=== PATIENT | female | born 1970 | race Caucasian/White ===

== ENCOUNTER 2017-05-30 16:18 | Emergency (ER) | payer OTHER ==
[~2017-05-30] VITALS: Ht 165.1 cm; Wt 95.3 kg
[~2017-05-30 16:18] MED LIST: ABILIFY 10 MG10 MG PO; ABILIFY 5MG5 MG PO; AMITRIPTYLINE H50 M2 PO; BETHANECHOL CHL10 MG PO; CALCITRIOL0.5 MC1 PO; CLONAZEPAM1 MG PO; FLOMAX(MONOGRA0.4 MG PO; HYDROCORTI2.5 %/30 G TOP; IRON240 MG PO; IRON256 MG PO; KEFLEX500 M1 PO; LAMICTAL 25MG25 MG PO; LAMOTRIGINE200 M2 PO; LITHIUM CARBON300 M2; MELATONIN 3 MG-1 TAB PO; MELATONIN3 MG PO; MYCOPHENOLATE500 M1 PO; MYCOPHENOLATE500 MG PO; NEURONTIN100 MG PO; PERCOCET 5-3251 EACH PO; PROPRANOLOL HC120 M1 PO; PROPRANOLOL HY120 MG PO; SENSIPAR30 M1 PO; SENSIPAR30 MG PO; SERTRALINE HYDR50 MG PO; SUMATRIPTAN SU100 M1 PO; SUMATRIPTAN SU100 MG PO; TRAZODONE100 MG PO; TURMERIC500 M2 PO; URECHOLINE10 MG PO; XARELTO15 M1 PO; XARELTO15 MG PO; XARELTO20 M2 PO
[2017-05-30 16:25] VITALS: BP 128/82
--- NOTE | 2017-05-30 16:28 | ED ANIMAL BITE/WOUND CHECK ---
History of Present Illness General Chief Complaint: Suture Removal/Wound Recheck Stated Complaint: SUTURE REMOVAL Source: patient, old records Exam Limitations: no limitations Vital Signs & Intake/Output Vital Signs & Intake/Output Vital Signs Date Time Temp Pulse Resp B/P B/P Pulse O2 O2 Flow FiO2 Mean Ox Delivery Rate 05/30 1628 94 05/30 1625 98.0 86 18 128/82 94 Room Air Allergies Coded Allergies: Penicillins (RASH 05/26/17) lithium (TREMORS 05/26/17) Reconcile Medications Amitriptyline HCl 50 MG TABLET 1 TAB PO QPM BLADDER/MENTAL HEALTH (Reported) Calcitriol 0.5 MCG CAPSULE 1 CAP PO DAILY SUPPLEMENT (Reported) Cephalexin (Keflex) 500 MG CAPSULE 1 CAP PO BID nasal fracture lip laceration Cinacalcet HCl (Sensipar) 30 MG TABLET 1 TAB PO BID THYROID (Reported) Ferrous Gluconate (IRON) 256 MG (28 MG IRON) TABLET 1 TAB PO DAILY SUPPLEMENT (Reported) Lamotrigine 200 MG TABLET 1 TAB PO DAILY MENTAL HEALTH (Reported) Mycophenolate Mofetil 500 MG TABLET 1 TAB PO BID MS (Reported) Oxycodone HCl/Acetaminophen (Percocet 5-325 MG Tablet) 5 MG-325 MG TABLET 1 TAB PO BID PRN pain Propranolol HCl (Propranolol HCl ER) 120 MG CAP.SA.24H 1 CAP PO BID TREMORS/BP (Reported) Rivaroxaban (Xarelto) 15 MG TABLET 1 TAB PO BID BLOOD THINNER (Reported) Sumatriptan Succinate 100 MG TABLET 1 TAB PO AD PRN MIGRAINES (Reported) may repeat in 2 hours; do not exceed 200 mg in 24 hours Turmeric Root Extract (Turmeric) (Unknown Strength) CAPSULE (Unknown Dose) PO DAILY SUPPLEMENT (Reported) Triage Note: PT HERE FOR SUTURE REMOVAL FROM FACE. SUTURES PLACED ON THE OF THIS MONTH HERE IN THE ED. Triage Nurses Notes Reviewed? yes Onset: Abrupt Duration: day(s): (4), constant Timing: recent history Injury Environment: home Is Injury an Animal Bite? No Severity: mild No Modifying Factors: none Associated Symptoms: denies : No Patient currently breastfeeds: No HPI: 46-year-old female presents to ER for evaluation for wound check suture removal after being seen here 4 days ago requiring 5 sutures status post fall. She denies any redness warmth fever chills discharge she is otherwise without any complaints Past History Travel History Traveled to [place] past 21 day No Medical History Any Pertinent Medical History? see below for history Musculoskeletal: MS Psychiatric: bipolar disease Endocrine: DIABETIS INSIPIDUS Other Medical Hx: MS, PE.DVT History of MRSA: No History of VRE: No History of CDIFF: No Tetanus Vaccine: 05/26/17 Surgical History Surgical History: N Psychosocial History Who do you live with Other (see notes) Services at Home None What is your primary language Irish Tobacco Use: Never used ETOH Use: denies use Illicit Drug Use: denies illicit drug use Family History Family History, If Any: No Known Family History. Hx Contributory? No Review of Systems Review of Systems Constitutional: Reports: see HPI. Comments Review of systems: See HPI, All other systems negative. Constitutional, no chills no fever, HEENT: no sore throat no congestion Cardiovascular: No chest pain Skin: no rashes, no change in skin Respiratory: No dyspnea no cough no sputum GI: No nausea no vomiting Muscle skeletal: No joint pain, no back pain Neurologic: , no headache Heme/endocrine: No bruising Physical Exam Physical Exam General Appearance: well developed/nourished, no apparent distress, alert Comments: Well-developed well-nourished patient in no apparent distress. HEENT: Atraumatic, sutures [address] noted below the right nostril, there is no surrounding erythema or or ecchymosis there is dry scabs noted to the lip and nasal bridge extraocular motion intact Neck: Supple, FROM Back: FROM Respiratory: No respiratory distress. Patient speaking in full complete sentences. Extremities: full range of motion Neuro: awake, alert, and oriented to person, place and time. There were no obvious focal neurologic abnormalities. Skin: Warm & dry;No appreciable rash on exposed skin Psych: Mood affect normal, normal memory normal judgment. Progress Differential Diagnosis: abscess, cellulitis Plan of Care: Discussed with patient plan of care that I do not believe the sutures are ready to come out she will return in 3 days for wound check I discussed with her plan of care return precautions she feels comfortable with plan cleared for discharge Departure Departure Time of Disposition: 1645 Disposition: HOME OR SELF CARE Condition: Stable Clinical Impression Primary Impression: Visit for wound check Referrals: Autumn Roman MD (PCP/Family) Additional Instructions: return in 3 days for wound check, suture removal. Departure Forms: Customer Survey General Discharge Information
== END 2017-05-30 16:45 ==
LOC: ERH 16:18
DX: Z48.02 Encounter for removal of sutures (principal)

== ENCOUNTER 2017-06-02 17:23 | Emergency (ER) | payer OTHER ==
[~2017-06-02] VITALS: Ht 165.1 cm; Wt 97.5 kg
--- NOTE | 2017-06-02 17:29 | ED SKIN/ALLERGY COMPLAINT ---
History of Present Illness General Chief Complaint: Suture Removal/Wound Recheck Stated Complaint: WOUND CHECK Source: patient, old records Exam Limitations: no limitations Vital Signs & Intake/Output Vital Signs & Intake/Output Vital Signs Date Time Temp Pulse Resp B/P B/P Pulse O2 O2 Flow FiO2 Mean Ox Delivery Rate 06/02 1751 Room Air 06/02 1748 96.8 73 16 121/86 98 Room Air Allergies Coded Allergies: Penicillins (RASH 05/26/17) lithium (TREMORS 05/26/17) Reconcile Medications Amitriptyline HCl 50 MG TABLET 1 TAB PO QPM BLADDER/MENTAL HEALTH (Reported) Calcitriol 0.5 MCG CAPSULE 1 CAP PO DAILY SUPPLEMENT (Reported) Cephalexin (Keflex) 500 MG CAPSULE 1 CAP PO BID nasal fracture lip laceration Cinacalcet HCl (Sensipar) 30 MG TABLET 1 TAB PO BID THYROID (Reported) Ferrous Gluconate (IRON) 256 MG (28 MG IRON) TABLET 1 TAB PO DAILY SUPPLEMENT (Reported) Lamotrigine 200 MG TABLET 1 TAB PO DAILY MENTAL HEALTH (Reported) Mycophenolate Mofetil 500 MG TABLET 1 TAB PO BID MS (Reported) Oxycodone HCl/Acetaminophen (Percocet 5-325 MG Tablet) 5 MG-325 MG TABLET 1 TAB PO BID PRN pain Propranolol HCl (Propranolol HCl ER) 120 MG CAP.SA.24H 1 CAP PO BID TREMORS/BP (Reported) Rivaroxaban (Xarelto) 15 MG TABLET 1 TAB PO BID BLOOD THINNER (Reported) Sumatriptan Succinate 100 MG TABLET 1 TAB PO AD PRN MIGRAINES (Reported) may repeat in 2 hours; do not exceed 200 mg in 24 hours Turmeric Root Extract (Turmeric) (Unknown Strength) CAPSULE (Unknown Dose) PO DAILY SUPPLEMENT (Reported) Triage Nurses Notes Reviewed? yes Onset: Gradual Duration: week(s): Timing: recent history Severity: moderate Location: face HPI: 46-year-old female presents to emergency department for suture removal. Patient was seen and evaluated here 1 week ago for upper lip laceration after a fall. Patient had 5 stitches placed at that time. Patient came back 3 days ago however was told that the stitches were not ready to come out yet. Patient has been applying a Band-Aid however she has not been applying bacitracin or cleaning the area. She denies fevers, bleeding, swelling, bruising. (Vero Oh) Past History Travel History Traveled to [place] past 21 day No Medical History Any Pertinent Medical History? see below for history Musculoskeletal: MS Psychiatric: bipolar disease Endocrine: DIABETIS INSIPIDUS Other Medical Hx: MS, PE.DVT History of MRSA: No History of VRE: No History of CDIFF: No Tetanus Vaccine: 05/26/17 Surgical History Surgical History: N Psychosocial History Who do you live with Other (see notes) Services at Home None What is your primary language Dutch Family History Family History, If Any: No Known Family History. Hx Contributory? No (Vero Oh) Review of Systems Review of Systems Constitutional: Reports: no symptoms. EENTM: Reports: no symptoms. Respiratory: Reports: no symptoms. Cardiovascular: Reports: no symptoms. GI: Reports: no symptoms. Genitourinary: Reports: no symptoms. Musculoskeletal: Reports: no symptoms. Skin: Reports: see HPI. Neurological/Psychological: Reports: no symptoms. Hematologic/Endocrine: Reports: no symptoms. Immunologic/Allergic: Reports: no symptoms. All Other Systems: Reviewed and Negative (Vero Oh) Physical Exam Physical Exam General Appearance: well developed/nourished, no apparent distress, alert, awake Head: steri strips in place to nasal bridge 2x2cm scab above upper lip Eyes: Bilateral: normal appearance. Ears, Nose, Throat: healing wound to inner lower lip Neck: normal inspection, supple, full range of motion Respiratory: no respiratory distress Back: normal inspection, normal range of motion Extremities: normal inspection, normal range of motion Neurologic/Psych: awake, alert, oriented x 3 Skin: 2x2cm scab above upper lip (Vero Oh) Progress Differential Diagnosis: abscess/cellulitis, contact dermatitis, SUTURE REMOVAL, ABRASION, LACERATION Plan of Care: 5 STITCHES REMOVED. LARGE SCAB WAS REMOVED TO VISUALIZE STITCHES. PATIENT TOLERATED PROCEDURE WELL. PT INSTRUCTED TO APPLY BACITRACIN DAILY. STERI STRIPS TO NASAL BRIDE HAVE BEEN PRESENT X 1 WEEK. PATIENT INSTRUCTED TO APPLY WARM COMPRESS AND REMOVE STRIPS TODAY. PATIENT ALSO EDUCATED ON CLEANING WOUND DAILY. (Vero Oh) Departure Departure Disposition: HOME OR SELF CARE Condition: Stable Clinical Impression Primary Impression: Visit for suture removal Referrals: Autumn Roman MD (PCP/Family) Additional Instructions: Keep skin clean and dry. Continue to monitor for symptoms of infection such as redness, swelling, increasing pain. Return with any worsening symptoms or concerns. Apply warm compress to strips so they fall off. Please go over all results of today's visit with your primary care doctor. Contact your primary care doctor to let them know you were here in the emergency room. There may be nonspecific findings which may not be related to your visit today here in the emergency room but may require further evaluation and chronic monitoring by your primary care doctor. If you had a laceration today the chance of foreign body always remains. You should follow-up with your primary care doctor for recheck in 3-5 days for a wound check. If you had an x-ray done there is a chance that a fracture could have been missed on initial read and you should follow-up with your primary care doctor for repeat x-rays if symptoms persist. If your blood pressure was elevated here in the emergency room please have rechecked by [facility] primary care doctor within the next 48. If you were prescribed a narcotic here in the emergency room or any type of controlled substances you're not allowed to drive while taking this medication or operate any type of heavy machinery. Narcotics can make you feel lightheaded dizziness nausea and can cause constipation. You may need to leaf size picker a stool softener. Thank you for choosing [facility] emergency room. Please return to the emergency room immediately if you have any other concerns worsening of symptoms. Departure Forms: Customer Survey General Discharge Information (Farrah THEODORE,Vero Quintero) PA/FIBER TECHNICIAN Co-Sign Statement Statement: ED Attending supervision documentation- [] I saw and evaluated the patient. I have also reviewed all the pertinent lab results and diagnostic results. I agree with the findings and the plan of care as documented in the PA's/FIBER TECHNICIAN's documentation. [X] I have reviewed the ED Record and agree with the PA's/FIBER TECHNICIAN's documentation. [] Additions or exceptions (if any) to the PAs/FIBER TECHNICIAN's note and plan are summarized below: [] (Bruce ADHIKARI,Esa Rhoades)
[2017-06-02 17:48] VITALS: BP 121/86
== END 2017-06-02 18:21 ==
LOC: ERH 17:23
DX: Z48.02 Encounter for removal of sutures (principal)

== ENCOUNTER 2017-09-21 12:54 | Inpatient (IN) | payer OTHER ==
[~2017-09-21] VITALS: Ht 167.6 cm; Wt 96.7 kg
[~2017-09-21 12:54] MED LIST changes: -PROPRANOLOL HC120 M1 PO; +PROPRANOLOL HCL80 M2 PO; -XARELTO15 M1 PO
[2017-09-21] MEDS ORDERED: ACETAZOLAMIDE125 M1 PO (14:24)
[2017-09-21] MEDS ORDERED: HYDROCHLOROTH12.5 M2 PO (14:25)
[2017-09-21] MEDS ORDERED: MIRTAZAPINE15 M2 PO (14:26)
--- NOTE | 2017-09-21 15:34 | ED UPPER/LOWER EXTREMITY COMPL ---
History of Present Illness General Chief Complaint: Lower Extremity Problems Stated Complaint: SIB NEURO, ?CELLULITIS IN L LEG Vital Signs & Intake/Output Vital Signs & Intake/Output Vital Signs Date Time Temp Pulse Resp B/P B/P Pulse O2 O2 Flow FiO2 Mean Ox Delivery Rate 09/21 1736 74 20 144/88 100 Room Air 09/21 1309 97.0 85 20 95/68 94 Room Air Allergies Coded Allergies: Penicillins (RASH 05/26/17) lithium (TREMORS 05/26/17) Reconcile Medications Acetazolamide 125 MG TABLET 1 TAB PO BID UNKNOWN (Reported) Amitriptyline HCl 50 MG TABLET 1 TAB PO QPM BLADDER/MENTAL HEALTH (Reported) Calcitriol 0.5 MCG CAPSULE 1 CAP PO DAILY SUPPLEMENT (Reported) Cinacalcet HCl (Sensipar) 30 MG TABLET 1 TAB PO BID THYROID (Reported) Ferrous Gluconate (IRON) 256 MG (28 MG IRON) TABLET 1 TAB PO MoWeFr SUPPLEMENT (Reported) Hydrochlorothiazide 12.5 MG TABLET 1 TAB PO DAILY WATER RETENTION (Reported) Lamotrigine 200 MG TABLET 1 TAB PO DAILY MENTAL HEALTH (Reported) Mirtazapine 15 MG TABLET 1 TAB PO QPM SLEEP (Reported) Mycophenolate Mofetil 500 MG TABLET 1 TAB PO BID MS (Reported) Propranolol HCl (Propranolol HCl ER) 80 MG CAP.SA.24H 1 CAP PO DAILY TREMORS (Reported) Rivaroxaban (Xarelto) 20 MG TABLET 1 TAB PO DAILY BLOOD THINNER (Reported) with food Triage Note: PT TO ED FOR LLE PAIN, SWELLING AND REDNESS X A FEW DAYS. WORSE THE LAST COUPLE DAYS. AFEBRILE. PAIN IS WORSE WITH WEIGHT BEARING. Past History Travel History Traveled to [place] past 21 day No Medical History Neurological: multiple sclerosis Musculoskeletal: MS Psychiatric: bipolar disease Endocrine: DIABETES INSIPIDUS Other Medical Hx: MS, PE.DVT History of MRSA: No History of VRE: No History of CDIFF: No Tetanus Vaccine: 05/26/17 Surgical History Surgical History: N Psychosocial History Who do you live with Other (see notes) Services at Home None What is your primary language Malay Tobacco Use: Never used ETOH Use: denies use Illicit Drug Use: denies illicit drug use Family History Family History, If Any: No Known Family History. Progress Plan of Care: Orders Procedure Date/time Status URINALYSIS 09/21 1741 Active LACTIC ACID 09/21 1657 Active EKG 09/21 1653 Active BLOOD CULTURE 09/21 1357 Active LACTIC ACID 09/21 1357 Active HEPATITIS PANEL 09/21 1357 Active COMPREHENSIVE METABOLIC PANEL 09/21 1357 Active CBC WITHOUT DIFFERENTIAL 09/21 1357 Complete Current Medications Sig/Sheree Start time Last Medication Dose Stop Time Status Admin Potassium Chloride 20 MEQ ONCE ONE 09/21 1700 CAN 09/21 1701 Laboratory Tests 09/21/17 181: Lactic Acid Pending 09/21/17 1550: Anion Gap 22 H, Estimated GFR 25 L, BUN/Creatinine Ratio 16.2, Glucose 93, Lactic Acid 2.3 H, Calcium 9.3, Total Bilirubin 1.0, AST 39 H, ALT 29, Alkaline Phosphatase 164 H, Total Protein 9.5 H, Albumin 5.0, Globulin 4.5 H, Albumin/Globulin Ratio 1.1, CBC w Diff NO MAN DIFF REQ, RBC 4.62, MCV 94.2, MCH 31.4 H, MCHC 33.4, RDW 14.3, MPV 7.6, Gran % 73.1, Lymphocytes % 13.5 L, Monocytes % 12.0 H, Eosinophils % 1.0, Basophils % 0.4, Absolute Granulocytes 9.4 H, Absolute Lymphocytes 1.7, Absolute Monocytes 1.6 H, Absolute Eosinophils 0.1, Absolute Basophils 0, Hepatitis A IgM Ab Pending, Hep Bs Antigen Pending, Hep B Core IgM Ab Conf Pending, Hepatitis C Antibody Pending Microbiology 09/21 1818 BLOOD: Blood Culture - CAN Cancelled: Quantity not sufficient for both blood culture bottles. 09/21 1550 BLOOD: Blood Culture - RECD Diagnostic Imaging: Viewed by Me: Ultrasound. Discussed w/RAD: Ultrasound. Initial ED EKG: SINUS RHYTHM @73BPM, NONSPECIFIC ST CHANGES Prior EKG: changed (01/17/14) Departure Departure Disposition: STILL A PATIENT Condition: Stable Clinical Impression Primary Impression: Acute kidney injury Secondary Impressions: Cellulitis Qualifiers: Site of cellulitis: extremity Site of cellulitis of extremity: lower extremity Laterality: right Qualified Code: L03.115 - Cellulitis of right lower limb Hypokalemia Referrals: Autumn Roman MD (PCP/Family) Departure Forms: Customer Survey General Discharge Information Admission Note Spoke With: Juan A Klein MD Documentation of Exam: Documentation of any treatments & extenuating circumstances including Concerns Regarding Discharge (functional status, medication knowledge or non-compliance, living conditions, etc.) that warrant an admission rather than observation: [ acute kidney injury with hypokalemia and EKG changes requiring potassium replacement, repeat labs, telemetry monitoring, cellulitis requiring IV antibiotics, premature discharge medically unsafe]
[2017-09-21 16:20] LABS: ABSOLUTE BASOPHIL COUNT 0 /CUMM (0.0-0.2); ABSOLUTE EOSINOPHIL COUNT 0.1 /CUMM (0.0-0.7); ABSOLUTE GRANULOCYTE CT 9.4 /CUMM (1.4-6.5); ABSOLUTE LYMPH COUNT 1.7 /CUMM (1.2-3.4); ABSOLUTE MONOCYTE COUNT 1.6 /CUMM (0.10-0.60); BASOPHIL % 0.4 % (0.0-2.0); GRANULOCYTE % 73.1 % (42.2-75.2); HEMATOCRIT 43.5 % (37-47); MEAN CORPUSCULAR HGB 31.4 PG (27.0-31.0); MEAN CORPUSCULAR HGB CONC 33.4 G/DL (33.0-37.0); MEAN CORPUSCULAR VOLUME 94.2 FL (81.0-99.0); MEAN PLATELET VOLUME 7.6 FL (7.4-10.4); PLATELET COUNT 396 /CUMM (130-400); RBC DISTRIBUTION WIDTH 14.3 % (11.5-14.5); RED BLOOD CELL CT 4.62 /CUMM (4.20-5.40); WHITE BLOOD CELL COUNT 12.9 /CUMM (4.8-10.8)
--- NOTE | 2017-09-21 16:58 | ULTRASOUND REPORT ---
EXAMINATION: US TRIPLEX LOWER EXTREMITY, LEFT CLINICAL INFORMATION: Left lower extremity swelling. COMPARISON: None TECHNIQUE: Color-flow triplex imaging with spectral analysis and compression Doppler were performed on the lower extremity. FINDINGS: Respiratory variation, normal compression and augmented flow are noted throughout the lower extremity. The visualized common femoral vein, superficial femoral vein, profunda femoral vein, popliteal vein and midcalf peroneal and posterior tibial venous segments show no evidence of deep venous thrombosis. There is no Willams's cyst. IMPRESSION: No evidence of deep venous thrombosis involving the lower extremity.
--- NOTE | 2017-09-21 21:10 | History & Physical ---
Dwain Dumont 09/21/172108: General Information and HPI MD Statement: I have seen and personally examined LILIANA MCCRACKEN and documented this H&P. The patient is a 47 year old F who presented with a patient stated chief complaint of [left lower extremity swelling]. Source of Information: patient Exam Limitations: no limitations History of Present Illness: The patient is a 47 years old lady with past medical history of MS and HTN who was reffered to ER by her neurologist due to left lower extremity cellulitis. She was relatively fine till 5 days ago when her symptoms started as redness and swelling in her left ankle. These symptoms has been worsening gradually. She had no fever recently. No visible wound or discharge from her left lower extermity. She reports no chills, sweating, chest pain, SOB, or fever. She has an overactive bladder but no signs or symptoms of UTI. She has history of frequent falling, she has been using a walker lately which has helped her with the falls. PMHx:She had one episode of PTE in 2013, and history of MS (was on mycophenolate till 1.5 months ago). GERD, Bipolar dx (was on Li previously that caused DI). FHx: Not significant Social Hx: No smoking or alcohol or drugs Imaging: Doppler sono of LE: No evidence of deep venous thrombosis involving the lower extremity Labs: K: 2.7 ---> 2.3 Cr: 2.1 --> 1.5 Lactic acid: 2.3 ---> 3.1 ---> 3.2 Allergies/Medications Allergies: Coded Allergies: Penicillins (RASH 05/26/17) lithium (TREMORS 05/26/17) Home Med list Acetazolamide 125 MG TABLET 1 TAB PO BID UNKNOWN (Reported) Amitriptyline HCl 50 MG TABLET 1 TAB PO QPM BLADDER/MENTAL HEALTH (Reported) Calcitriol 0.5 MCG CAPSULE 1 CAP PO DAILY SUPPLEMENT (Reported) Cinacalcet HCl (Sensipar) 30 MG TABLET 1 TAB PO BID THYROID (Reported) Ferrous Gluconate (IRON) 256 MG (28 MG IRON) TABLET 1 TAB PO MoWeFr SUPPLEMENT (Reported) Hydrochlorothiazide 12.5 MG TABLET 1 TAB PO DAILY WATER RETENTION (Reported) Lamotrigine 200 MG TABLET 1 TAB PO DAILY MENTAL HEALTH (Reported) Mirtazapine 15 MG TABLET 1 TAB PO QPM SLEEP (Reported) Propranolol HCl (Propranolol HCl ER) 80 MG CAP.SA.24H 1 CAP PO DAILY TREMORS (Reported) Rivaroxaban (Xarelto) 20 MG TABLET 1 TAB PO DAILY BLOOD THINNER (Reported) with food Compliance With Home Meds: GOOD Past History Travel History Traveled to [place] past 21 day No Medical History Neurological: multiple sclerosis Musculoskeletal: MS Psychiatric: bipolar disease Endocrine: DIABETES INSIPIDUS Other Medical Hx: MS, PE.DVT History of MRSA: No History of VRE: No History of CDIFF: No Tetanus Vaccine: 05/26/17 Surgical History Surgical History: N Past Family/Social History Family History Relations & Conditions if any No Known Family History. Psychosocial History Services at Home: None ETOH Use: denies use Illicit Drug Use: denies illicit drug use Review of Systems Review of Systems Constitutional: Reports: no symptoms, see HPI. EENTM: Reports: no symptoms, see HPI. Cardiovascular: Reports: see HPI. Respiratory: Reports: see HPI. GI: Reports: see HPI. Genitourinary: Reports: see HPI. Musculoskeletal: Reports: see HPI. Skin: Reports: see HPI. Neurological/Psychological: Reports: see HPI. Hematologic/Endocrine: Reports: see HPI. Immunologic/Allergic: Reports: see HPI. Exam & Diagnostic Data Last 24 Hrs of Vital Signs/I&O Vital Signs Date Time Temp Pulse Resp B/P B/P Pulse O2 O2 Flow FiO2 Mean Ox Delivery Rate 09/21 2154 98.4 80 20 118/72 98 Room Air 09/21 2037 97.6 82 16 138/82 97 Room Air 09/21 1736 74 20 144/88 100 Room Air 09/21 1309 97.0 85 20 95/68 94 Room Air Intake & Output 09/22 0800 09/22 0000 09/21 1600 Intake Total 0 Output Total Balance 0 Intake, Oral 0 Patient 211 lb 204 lb Weight Weight Bed scale Estimated Measurement Method Physical Exam General Appearance Alert, Oriented X3, Cooperative, No Acute Distress Skin No Rashes Skin Temp/Moisture Exam: Warm/Dry Sepsis Skin Exam (color): Normal for Ethnicity HEENT Atraumatic, PERRLA, EOMI, Mucous Membr. moist/pink Neck Supple, No JVD Cardiovascular Regular Rate, Normal S1, Normal S2 Lungs Clear to Auscultation, Normal Air Movement Abdomen Normal Bowel Sounds, Soft, No Tenderness Neurological Normal Speech, Strength at 5/5 X4 Ext, Normal Tone, Sensation Intact, Cranial Nerves 3-12 NL Extremities Distal left lower extermity erythema and tenderness with no drainage or wound Vascular Normal Pulses, Pulses Symmetrical Sepsis Peripheral Pulse Location: Dorsalis Pedis Sepsis Peripheral Pulse Exam: Normal Sepsis Cap Refill Exam: >2 sec Diagnostic Data EKG Results ST dep in V4-6, I, II Other Results LE doppler sono: NO DVT Assessment/Plan Assessment: Ms. Mccracken is a 47 yo lady with past medical hx of HTN, MS, bipolar disorder, and previous PTE who is sent here by her neurologist due to erythema, swelling and tenderness in her right lower extremity. She has not been febrile and she has no drainage or wound at the site of erythema, she has tenderness and mild to moderate pain. She also has pitting edema in the same side. A lower extremity doppler sono was done which showed no signs of DVT. She is on Rivaroxaban. Her P/E and Hx and lab results (high LA) are consistent with cellulitis. So it might be prudent to start empiric antibiotic therapy that covers beta-hemolytic streptococci and methicillin- susceptible Staphylococcus aureus, which means cefazolin would be a good choice in her case. since she has an impaired renal function we should give her adjusted dose. We should also send cultures for blood and urine. We should monitor the lactic acid and creatinine level. She also has elevated creatinine level that is coming down with hydration. She also has hypokalemia for which IV KCl has been ordered. Problem List -Cellulitis in right lower extremity -Hypokalemia (2.7 ---> 2.3) -JESSICA (2.1 ---> 1.5) -ST dep V4-V6, I, AvL -MS, not on immunosuppresives -Bipolar disorder -HTN -Hx of PE -Hx of DI As Ranked By This Provider Problem List: 1. Cellulitis Qualifiers Site of cellulitis: extremity Site of cellulitis of extremity: lower extremity Laterality: right Qualified Code: L03.115 - Cellulitis of right lower limb 2. Acute kidney injury 3. Hypokalemia 4. Overactive bladder 5. Multiple sclerosis 6. Bipolar disorder Core Measures/Misc (11/21) Acute Coronary Syndrome ACS Diagnosis: No Congestive Heart Failure Congestive Heart Failure Diagnosis No Cerebrovascular Accident CVA/TIA Diagnosis: No VTE (View Protocol) VTE Risk Factors Obesity No Mechanical VTE Prophylaxis d/t N/A MechProphylax Ordered No VTE Pharm Prophylaxis d/t NA PharmProphylax ordered Sepsis (View protocol) Sepsis Present: Yes If YES complete Sepsis Event Note If YES complete Sepsis Event Note Paty ADHIKARIWally 09/21/17 2132: Core Measures/Misc (11/21) Sepsis (View protocol) If YES complete Sepsis Event Note If YES complete Sepsis Event Note Resident Review Statement Resident Statement: examined this patient, discussed with sourcing intern, agreed with sourcing intern, reviewed EMR data (avail) Other Findings: History of present illness 47-year-old woman with past medical history of bipolar disorder, hypertension, multiple sclerosis, overactive bladder, migraines, history of diabetes insipidus , severe hyponatremia, primary hyperparathyroidism, and pulmonary embolism on Xarelto sent in by her neurologist for lower extremity swelling and redness. Patient reports that over the past 5 days she has had moderately worsening left lower extremity swelling with tenderness. She denies any trauma to the area and feels it is getting worse. She denies any fever or chills. Otherwise patient feels well and has no complaints. Review of systems Additionally she denies any headache, vision changes, lightheadedness, dizziness , chest pain, palpitations, shortness breath, cough, nausea, vomiting, diarrhea, constipation, urinary complaints. Objective Vital signs-temp 97.0, HR 74-85, RR 20, BP 95-1 4 4/66-88, O2 94-100% on room air Physical exam -General: Well-developed, obese middle-aged woman in no acute distress -HEENT: NCAT, Dustin, EOMI, anicteric sclera -Neck: Supple, no JVD, trachea midline, no accessory respiratory muscle use -Cardio: Normal S1/S2 without murmurs/scalp/rubs; regular rate and rhythm -Pulmonary: Diminished bibasilar airflow -Abdomen: Soft, nontender, nondistended, bowel sounds intact -Neuro: Awake and alert, cranial nerves II through XII grossly intact -Extremities: Mild distal left lower extremity erythema and tenderness without obvious drainage Labs/imaging/studies -CBC: WBC 12.9, hemoglobin 14.5, hematocrit 43.5, platelet 396 -BMP: Sodium 136, potassium 2.7, chloride 85, CO2 29, BUN 34, creatinine 2.1 -LFT: AST 39, ALT 29, ALP 164 -Miscellaneous: Lactic acid 2.3/3.1, -LLE venous Doppler: * No evidence of deep venous thrombosis involving the lower extremity. -echocardiogram (01/14/14): * Mild concentric LVH * LVEF >65% * No regional wall motion abnormality -EKG 01/17/14: Sinus tachycardia -EKG 09/21/17 1715: ST segment depression in V4-V6, I, aVL, nonspecific interventricular conduction delay Assessment 47-year-old woman with multiple medical problems significant for bipolar disorder, pulmonary embolism on Xarelto, multiple sclerosis, and primary hyperparathyroidism seen for evaluation of lower extremity redness, tenderness, and swelling. Presently patient admits to only moderate pain in the left lower extremity and has no other complaints. Vital signs remain within normal limits. Physical examination demonstrates a mildly erythematous/tender left lower extremity without drainage. Lab studies are significant for WBC 12.9, K2.7, creatinine 2.1, lactic acid 2.3/3.1. Lower extremity ultrasound is negative for DVT. EKG does demonstrate lateral ST segment depression. Clinically patient appears to have sepsis secondary to a left lower extremity cellulitis with hypokalemia and acute kidney injury. Patient is to be admitted to the telemetry floor for telemetry monitoring, serial troponin/EKG, intravenous fluids, potassium repletion, antibiotics, echocardiogram, serial serum chemistries, and cardiology evaluation. Problem List -Right lower extremity cellulitis -Elevated Lactic acid -Hypokalemia -Acute kidney injury -ST depression V4-V6, I, AvL -Bipolar disorder -Multiple sclerosis, not on immunosuppresives -Hypertension -Overactive bladder -History of Migraines -Primary hyperparathyroidism -History of PE, on Xarelto -History of Diabetes Insipidus -Obesity Plan -Admit to telemetry floor -Telemetry monitoring -Elevate leg -Normal Saline + 40 mEq KCl @ 100 mL/hr -Cefazolin 1g IV Q8H -Continue home meds: Acetazolamide, amitriptyline, calcitriol, cinacalcet, iron supplement, hydrochlorothiazide, lamotrigine, mirtazapine, propranolol, and Xarelto -Cardiology consult for EKG changes -Follow up cultures & sensitivies -Transthoracic echocardiogram to assess for regional wall motion abnormality -Serial troponin / EKG until peak, or three negative sets -Monitor BMP -Trend lactic acid until normal -Pain control with acetaminophen -Heart Healthy Diet -DVT PPx with ALPS & Xarelto -FULL CODE Ernie ADHIKARIJuan A 09/21/17 2156: Core Measures/Misc (11/21) Sepsis (View protocol) If YES complete Sepsis Event Note If YES complete Sepsis Event Note Attending MD Review Statement Attending Statement Attending MD Statement: examined this patient, discuss w/resident/PA/SOLDER TECHNICIAN, agreed w/resident/PA/SOLDER TECHNICIAN, reviewed EMR data (avail) Attending Assessment/Plan: 47F PMH bipolar disorder, hypertension, multiple sclerosis sent in from her neurologist's office for LLE cellulitis. She has had left ankle swelling, erythema, and warmth for 2-3 days and it has been worsening. She denies fever, chills, headache, sore throat, chest pain, SOB, abdominal pain, diarrhea, dysuria, or any neurological deficit or change. Afebrile, normal BP and HR, WBC 12.9, lactate 2.3, creatinine 2.1. Leg is warm and red on exam, tender to palpation. EKG shows NSR with non-specific T-wave changes in precordial leads, differing from 2014 EKG. LE doppler negative for VTE. Of note, patient uses a mouth guard when she sleeps as she has broken teeth while grinding her teeth in her sleep before. 1. Sepsis secondary to left lower leg cellulitis 2. JESSICA 3. Lactic acidosis 4. Acute EKG changes 5. Multiple sclerosis Plan - Admit to telemetry - Start Cefazolin - Blood cultures - Trend EKG and troponin - Echocardiogram - Aggressive hydration - Trend lactate to normal - Trend renal function - Leg elevation - Mouth guard from home - Continue home medications - DVT PPx
[2017-09-21 21:54] VITALS: BP 118/72
--- NOTE | 2017-09-21 22:00 | Admission Certification ---
Admission Certification Certification Statement - As attending physician, I certify that at the time of - admission, based on clinical presentation, severity of - symptoms, need for further diagnostic testing and - therapeutic interventions, and risk of adverse outcomes - without in-hospital treatment, in my clinical assessment, - this patient requires an acute hospital stay for a minimum - of two nights or longer. I have also considered psychsocial - factors such as support system, advanced age, financial - issues, cognitive issues, and failed out-patient treatments, - past re-admission history, safety of patient, and lack of - compliance as applicable. Specific rationale supporting this admission is: Sepsis and cellulitis
[2017-09-22 05:17] LABS: ABSOLUTE BASOPHIL COUNT 0 /CUMM (0.0-0.2); ABSOLUTE EOSINOPHIL COUNT 0.1 /CUMM (0.0-0.7); ABSOLUTE GRANULOCYTE CT 5.7 /CUMM (1.4-6.5); ABSOLUTE LYMPH COUNT 1.4 /CUMM (1.2-3.4); ABSOLUTE MONOCYTE COUNT 0.9 /CUMM (0.10-0.60); BASOPHIL % 0.2 % (0.0-2.0); EOSINOPHIL % 1.8 % (0-5); GRANULOCYTE % 69.4 % (42.2-75.2); HEMATOCRIT 42.3 % (37-47); MEAN CORPUSCULAR HGB 31.3 PG (27.0-31.0); MEAN CORPUSCULAR HGB CONC 33.2 G/DL (33.0-37.0); MEAN CORPUSCULAR VOLUME 94.5 FL (81.0-99.0); MEAN PLATELET VOLUME 7.8 FL (7.4-10.4); PLATELET COUNT 400 /CUMM (130-400); RBC DISTRIBUTION WIDTH 14.7 % (11.5-14.5); RED BLOOD CELL CT 4.48 /CUMM (4.20-5.40); WHITE BLOOD CELL COUNT 8.2 /CUMM (4.8-10.8)
[2017-09-22 06:55] VITALS: BP 116/80
--- NOTE | 2017-09-22 07:28 | PN- Housestaff ---
Antonio Sullivan 09/22/17 0727: Subjective Follow-up For: Left lower extremity cellulitis Hypokalemia Acute kidney injury Lactic acidosis resolved Complaints: no complaints Tele-Events Since Last Visit: Normal sinus rhythm Subjective: Patient was seen and examined this morning. She is alert awake and oriented to time place and person. No acute events noticed overnight. Patient reports left lower extremity swelling, redness, less tender since admission. She is tolerating IV antibiotics. Patient potassium was low, getting IV and oral potassium supplementation. She denies any muscle weakness, chest pain, palpitations, short of breath, fevers, chills. Vitals were within normal limits. Afebrile, heart rate 85, respiratory rate 20, blood pressure 144/88, saturating at 100 on room air. Review of Systems Constitutional: Reports: see HPI. Objective Last 24 Hrs of Vital Signs/I&O Vital Signs Date Time Temp Pulse Resp B/P B/P Pulse O2 O2 Flow FiO2 Mean Ox Delivery Rate 09/22 1416 97.1 81 18 104/62 96 Room Air 09/22 0802 120/62 09/22 0655 97.8 82 18 116/80 97 Room Air 09/21 2154 98.4 80 20 118/72 98 Room Air 09/21 2037 97.6 82 16 138/82 97 Room Air 09/21 1736 74 20 144/88 100 Room Air Intake & Output 09/22 1600 09/22 0800 09/22 0000 Intake Total 1000 Output Total 1500 300 Balance -500 -300 Intake, IV 600 Intake, Oral 400 Number 1 Bowel Movements Output, Urine 1500 300 Patient 95.481 kg Weight Weight Bed scale Measurement Method Physical Exam General Appearance: Alert, Oriented X3, Cooperative, No Acute Distress Other Physical Findings: HEENT Atraumatic, PERRLA, EOMI, Mucous Membr. moist/pink Neck Supple, No JVD Cardiovascular Regular Rate, Normal S1, Normal S2 Lungs Clear to Auscultation, Normal Air Movement Abdomen Normal Bowel Sounds, Soft, No Tenderness Neurological Normal Speech, Strength at 5/5 X4 Ext, Normal Tone, Sensation Intact, Cranial Nerves 3-12 NL Extremities Distal left lower extermity erythema and tenderness with no drainage or wound Vascular Normal Pulses, Pulses Symmetrical Current Medications: Current Medications Sig/Sheree Start time Last Medication Dose Route Stop Time Status Admin Acetaminophen 125 MG BID 07/18 2144 DC PO Acetaminophen 650 MG Q6P PRN 09/21 2130 AC PO Acetazolamide 125 MG BID 09/21 2330 AC 09/22 PO 0806 Amitriptyline HCl 50 MG QPM 09/22 2100 AC PO Calcitriol 0.5 MCG DAILY 09/22 0900 AC 09/22 PO 0802 Cefazolin Sodium 1,000 MG IQ8 09/22 0000 AC 09/22 IV 1543 Cefazolin Sodium 0 .STK-MED ONE 09/21 1948 DC .ROUTE Cefazolin Sodium 1,000 MG ONCE ONE 09/21 1930 DC 09/21 IV 09/21 1931 2000 Cinacalcet 30 MG BID 09/21 2145 AC 09/22 PO 0802 Ciprofloxacin 400 MG ONCE ONE 09/21 1745 CAN Dextrose/Water 200 ML IV 09/21 1844 Ferrous Sulfate 325 MG 09/23 0900 AC PO Hydrochlorothiazide 12.5 MG DAILY 09/22 0900 DC 09/22 PO 0801 Lamotrigine 200 MG DAILY 09/22 0900 AC 09/22 PO 0802 Mirtazapine 15 MG QPM 09/22 2100 AC PO Potassium Chloride 60 MEQ ONCE ONE 09/22 0845 DC 09/22 PO 09/22 0846 0857 Potassium Chloride 40 MEQ .STK-MED ONE 09/22 0005 DC PO 09/22 0006 Potassium Chloride 40 MEQ Q10H 09/21 2359 DC 09/22 Sodium Chloride 1,000 ML IV 0122 Potassium Chloride 40 MEQ ONCE ONE 09/21 2345 DC 09/22 PO 09/21 2346 0006 Potassium Chloride 10 MEQ ONCE ONE 09/21 1730 DC 09/21 IV 09/21 1731 1731 Potassium Chloride 0 .STK-MED ONE 09/21 1712 DC PO Potassium Chloride 40 MEQ ONCE ONE 09/21 1700 DC 09/21 PO 09/21 1701 1730 Potassium Chloride 20 MEQ ONCE ONE 09/21 1700 CAN IV 09/21 1701 Propranolol HCl 80 MG DAILY 09/22 0900 AC 09/22 PO 0802 Rivaroxaban 20 MG DAILY 09/22 0900 AC 09/22 PO 0802 Sodium Chloride 1,000 ML BOLUS ONE 09/21 2145 DC 09/21 IV 09/21 2244 2203 Sodium Chloride 1,000 ML Q10H 09/21 2145 DC IV Sodium Chloride 1,000 ML BOLUS ONE 09/21 1700 DC 09/21 IV 09/21 1759 1730 Vancomycin HCl 1,000 MG ONCE ONE 09/21 1930 DC 09/21 Sodium Chloride 250 ML IV 09/21 2028 193 Vancomycin HCl 0 .STK-MED ONE 09/21 1923 DC .ROUTE Vancomycin HCl 1,000 MG ONCE ONE 09/21 1745 CAN Sodium Chloride 250 ML IV 09/21 1844 Last 24 Hrs of Lab/Familia Results Last 24 Hrs of Labs/Mics: Laboratory Tests 09/22/17 1540: Sodium Pending, Potassium Pending, Chloride Pending, Carbon Dioxide Pending, Anion Gap Pending, BUN Pending, Creatinine Pending, BUN/Creatinine Ratio Pending 09/22/17 0720: Urine Color YEL, Urine Clarity HAZY H, Urine pH 7.0, Ur Specific [place] <= 1.005, Urine Protein NEG, Urine Ketones NEG, Urine Nitrite NEG, Urine Bilirubin NEG, Urine Urobilinogen 0.2, Ur Leukocyte Esterase LARGE H, Ur Microscopic SEDIMENT EXAMINED, Urine RBC RARE, Urine WBC 5-10 H, Ur Epithelial Cells FEW, Urine Bacteria FEW H, Urine Hemoglobin NEG, Urine Glucose NEG 09/22/17 0645: Anion Gap 15, Estimated GFR 35 L, BUN/Creatinine Ratio 16.9, Lactic Acid < 0.5 L, Magnesium 2.1 09/22/17 0500: Lactic Acid 0.9, CBC w Diff NO MAN DIFF REQ, RBC 4.48, MCV 94.5, MCH 31.3 H, MCHC 33.2, RDW 14.7 H, MPV 7.8, Gran % 69.4, Lymphocytes % 17.2 L, Monocytes % 11.4 H, Eosinophils % 1.8, Basophils % 0.2, Absolute Granulocytes 5.7, Absolute Lymphocytes 1.4, Absolute Monocytes 0.9 H, Absolute Eosinophils 0.1, Absolute Basophils 0 09/21/17 2230: Anion Gap 15, Estimated GFR 37 L, BUN/Creatinine Ratio 18.7, Lactic Acid 3.2 H , Troponin I 0.02 09/21/17 1819: Lactic Acid 3.1 H 09/21/17 1550: Anion Gap 22 H, Estimated GFR 25 L, BUN/Creatinine Ratio 16.2, Glucose 93, Lactic Acid 2.3 H, Calcium 9.3, Magnesium 2.2, Total Bilirubin 1.0, AST 39 H, ALT 29, Alkaline Phosphatase 164 H, Troponin I 0.04, Total Protein 9.5 H, Albumin 5.0, Globulin 4.5 H, Albumin/Globulin Ratio 1.1, CBC w Diff NO MAN DIFF REQ, RBC 4.62, MCV 94.2, MCH 31.4 H, MCHC 33.4, RDW 14.3, MPV 7.6, Gran % 73.1, Lymphocytes % 13.5 L, Monocytes % 12.0 H, Eosinophils % 1.0, Basophils % 0.4, Absolute Granulocytes 9.4 H, Absolute Lymphocytes 1.7, Absolute Monocytes 1.6 H, Absolute Eosinophils 0.1, Absolute Basophils 0, Hepatitis A IgM Ab NONREACTIVE, Hep Bs Antigen NONREACTIVE, Hep B Core IgM Ab Conf NONREACTIVE, Hepatitis C Antibody NONREACTIVE Microbiology 09/21 1819 BLOOD: Blood Culture - CAN Cancelled: Quantity not sufficient for both blood culture bottles. 09/21 1550 BLOOD: Blood Culture - RES Assessment/Plan Assessment: 47-year-old woman with past medical history of bipolar disorder, hypertension, multiple sclerosis, overactive bladder, migraines, history of diabetes insipidus , severe hypernatremia, primary hyperparathyroidism, and pulmonary embolism on Xarelto sent in by her neurologist for left lower extremity swelling and redness. Vital signs-temp 97.0, HR 74-85, RR 20, BP 95-1 4 4/66-88, O2 94-100% on room air Labs/imaging/studies -CBC: WBC 12.9, hemoglobin 14.5, hematocrit 43.5, platelet 396 -BMP: Sodium 136, potassium 2.7, chloride 85, CO2 29, BUN 34, creatinine 2.1 -LFT: AST 39, ALT 29, ALP 164 -Miscellaneous: Lactic acid 2.3/3.1, -LLE venous Doppler: * No evidence of deep venous thrombosis involving the lower extremity. -echocardiogram (01/14/14): * Mild concentric LVH * LVEF >65% * No regional wall motion abnormality -EKG 01/17/14: Sinus tachycardia -EKG 09/21/17 1715: ST segment depression in V4-V6, I, aVL, nonspecific interventricular conduction delay Left lower extremity cellulitis Patient presented with left lower extremity redness, swelling, tenderness for last 2-3 days. Vitals within normal limits. she was found to have leukocytosis 12.9 with lactic acidosis at the time of admission. Lower extremity ultrasound negative for DVT. She does not fulfill criteria for sepsis. * Admit to telemetry given hypokalemia * Continue cefazolin 1 g every 8 hours day2 * F/u Blood cultures * Elevate leg * F/u Fever, leukocytosis * Lactic acidosis resolved Hypokalemia Patient presented with potassium 2.7 at the time of admission. Of note patient reports that she has been doing low-calorie diet for last few weeks, she has been consuming less than 500 amanda per day. Hypokalemia most likely from low potassium intake. * Oral and IV potassium repletion * Recheck labs and replete accordingly * Mag was normal * Subtle EKG changes * Patient will get outpatient stress test for risk stratification * Follow-up echocardiogram * Continuous telemetry monitoring * Follow-up cardio recommendations Acute kidney injury Patient was found to have creatinine 2.1 at the time of admission. Looks like prerenal, improved with 2 bags of IV normal saline. Her creatinine is back to normal 1.5. * Monitor BUN, creatinine * And avoid nephrotoxic agents Lactic acidosis Lactic acid three-point at the time of admission, improved with normal saline bolus. Lactic acid back to normal. Bipolar disorder continue amitriptyline 25 od, lamotrigine 200 od Essential tremors continue propranolol 80 od Multiple sclerosis not on immunosuppressive agents Hypertension -patient takes hydrochlorothiazide 12.5 daily at home for high blood pressure. However will hold hydrochlorothiazide for now given hypokalemia. History of migraine takes sumatriptan as needed for headache 100 mg History of hyper parathyroidism-continue Sensipar 30 twice daily History of PE on Xarelto History of diabetes insipidus takes desmopressin 10 mcg nasal spray twice daily per nostril. will hold for now Insomnia continue mirtazapine 15 daily DVT prophylaxis on Xarelto Regular diet Full code Pain pathway ordered Problem List: 1. Cellulitis 2. Acute kidney injury Pain Ratin Pain Location: lle Pain Goal: Remain pain free Pain Plan: tylenol Tomorrow's Labs & Rationales: cbc bep mg Félix Ledesma 09/22/17 1434: Attending MD Review Statement Attending Statement Attending MD Statement: examined this patient, discuss w/resident/PA/UNIVERSITY RELATIONS DIRECTOR, agreed w/resident/PA/UNIVERSITY RELATIONS DIRECTOR, reviewed EMR data (avail), discussed with nursing, discussed with case mgmt Attending Assessment/Plan: Severe hypokalemia- pt was trying to loose weight and was on a very low calorie diet of 500cal /day. replace and recheck this afternoon . Pt was also on HCTZ and diamox making her potassium level worse. Once Potassium is better then we can dc tele and transfer her to [facility]. Cellulitis LE- on cefazolin. improving. cont to monitor.
--- NOTE | 2017-09-22 12:10 | Cons- Cardiology ---
General Information and HPI Consulting Request Date of Consult: 09/22/17 Requested By: Félix Ledesma MD Reason for Consult: EKG changes History of Present Illness: Ms Mccracken is a pleasant patient, with an extensive medical history significant for multiple sclerosis (no anti-TNF treatment at the moment), bipolar disorder previously treated with lithium, pulmonary embolism with life- long anticoagulation since (xarelto), migraine headaches and frequent urinary tract infections (latest antibiotic treatment approximately 10 days ago. She was admitted yesterday after a routine visit with her neurologist who diagnosed a probable cellulitis of the left lower extremity and advised the patient to present herself to the ER. She did indeed have cellulitis of the left leg, extending from the left ankle to the external surface of the midtibia, and was started promptly on IV antibiotics (Cefazolin) to which she has been responding well. She was fortuitously found to have severe hypokalemia upon admission, as well as repolarization abnormalities on the lateral leads of her EKG. The patient admits to have followed a strict extremely low calorie diet over the past week, consisting mostly of a small amount of plain yogurt, water and iced tea, in the hopes of losing weight. She continued taking all her medication as per usual, including her diuretic. In addition, she had very little appetite the previous week due to a likely gastroenteritis with frequent vomiting and very little food intake due to nausea. She denies any history of chest pain, palpitation, shortness of breath with her regular activities, but her functional capacity is very restricted by the strength and balance deficits she has sustained due to MS (walks inside the house, slowly, and requires a walker for any activity outside the house). Since admission, no significant arrhythmia was observed on telemetry, but the potassium levels have been requiring regular replenishment. Allergies/Medications Allergies: Coded Allergies: Penicillins (RASH 05/26/17) lithium (TREMORS 05/26/17) Home Med List: Acetazolamide 125 MG TABLET 1 TAB PO BID UNKNOWN (Reported) Amitriptyline HCl 25 MG TABLET 1 TAB PO QPM mental health (Reported) Calcitriol 0.5 MCG CAPSULE 1 CAP PO DAILY SUPPLEMENT (Reported) Cinacalcet HCl (Sensipar) 30 MG TABLET 1 TAB PO BID THYROID (Reported) Desmopressin Acetate (Ddavp) 0.1 MG TABLET 1 TAB INH BID DI (Reported) Ferrous Gluconate (IRON) 256 MG (28 MG IRON) TABLET 1 TAB PO MoWeFr SUPPLEMENT (Reported) Hydrochlorothiazide 12.5 MG TABLET 1 TAB PO DAILY WATER RETENTION (Reported) Lamotrigine 200 MG TABLET 1 TAB PO DAILY MENTAL HEALTH (Reported) Mirtazapine 15 MG TABLET 1 TAB PO QPM SLEEP (Reported) Propranolol HCl (Propranolol HCl ER) 80 MG CAP.SA.24H 1 CAP PO DAILY TREMORS (Reported) Rivaroxaban (Xarelto) 20 MG TABLET 1 TAB PO DAILY BLOOD THINNER (Reported) with food Sumatriptan Succinate 100 MG TABLET 1 TAB PO AD migraine (Reported) may repeat in 2 hours; do not exceed 200 mg in 24 hours Current Medications: Current Medications Sig/Sheree Start time Last Medication Dose Route Stop Time Status Admin Acetaminophen 125 MG BID 09/21 2144 DC PO Acetaminophen 650 MG Q6P PRN 09/21 2130 AC PO Acetazolamide 125 MG BID 09/21 2330 AC 09/22 PO 0806 Amitriptyline HCl 50 MG QPM 09/22 2100 AC PO Calcitriol 0.5 MCG DAILY 09/22 09 AC 09/22 PO 0802 Cefazolin Sodium 1,000 MG IQ8 09/22 0000 AC 09/22 IV 0801 Cefazolin Sodium 0 .STK-MED ONE 09/21 1948 DC .ROUTE Cefazolin Sodium 1,000 MG ONCE ONE 09/21 1930 DC 09/21 IV 09/21 1931999 Cinacalcet 30 MG BID 09/21 2145 AC 09/22 PO 0802 Ciprofloxacin 400 MG ONCE ONE 09/21 1745 CAN Dextrose/Water 200 ML IV 09/21 1844 Ferrous Sulfate 325 MG 09/23 0900 AC PO Hydrochlorothiazide 12.5 MG DAILY 09/22 0900 DC 09/22 PO 0801 Lamotrigine 200 MG DAILY 09/22 0900 AC 09/22 PO 0802 Mirtazapine 15 MG QPM 09/22 2100 AC PO Potassium Chloride 60 MEQ ONCE ONE 09/22 0845 DC 09/22 PO 09/22 0846 0857 Potassium Chloride 40 MEQ .STK-MED ONE 09/22 0005 DC PO 09/22 0006 Potassium Chloride 40 MEQ Q10H 09/21 2359 DC 09/22 Sodium Chloride 1,000 ML IV 0122 Potassium Chloride 40 MEQ ONCE ONE 09/21 2345 DC 09/22 PO 09/21 2346 0006 Potassium Chloride 10 MEQ ONCE ONE 09/21 1730 DC / IV 09/21 1731 1731 Potassium Chloride 0 .STK-MED ONE 09/21 1712 DC PO Potassium Chloride 40 MEQ ONCE ONE 09/21 1700 DC 07/ PO 09/21 1701 1730 Potassium Chloride 20 MEQ ONCE ONE 09/21 1700 CAN IV 09/21 1701 Propranolol HCl 80 MG DAILY 09/22 0900 AC 09/22 PO 0802 Rivaroxaban 20 MG DAILY 09/22 0900 AC 09/22 PO 0802 Sodium Chloride 1,000 ML BOLUS ONE 09/21 2145 DC / IV 09/21 2244 2203 Sodium Chloride 1,000 ML Q10H 09/21 2145 DC IV Sodium Chloride 1,000 ML BOLUS ONE 09/21 1700 DC 07/ IV 09/21 1759 1730 Vancomycin HCl 1,000 MG ONCE ONE 09/21 1930 DC 09/21 Sodium Chloride 250 ML IV 09/21 2029 1932 Vancomycin HCl 0 .STK-MED ONE 09/21 1923 DC .ROUTE Vancomycin HCl 1,000 MG ONCE ONE 09/21 1745 CAN Sodium Chloride 250 ML IV 09/21 1844 Review of Systems Review of Systems Constitutional: Reports: weakness. Denies: chills, diaphoresis, malaise. EENTM: Denies: blurred vision, double vision, visual changes, epistaxis. Cardiovascular: Denies: chest pain, edema, orthopena, palpitations, peripheral edema, syncope. Respiratory: Denies: cough, hemoptysis, orthopnea, short of breath, sputum production, wheezing. GI: Denies: abdominal pain, bloating, bowel incontinence, nausea, bloody stool, vomiting. Genitourinary: Denies: dysuria, hematuria, pain. Musculoskeletal: Reports: muscle pain (left leg, left ankle). Skin: Reports: erythema, rash (cellulitis rash on left leg). Denies: cysts. Neurological/Psychological: Reports: headache, pre-existing deficit, tingling. Denies: anxiety, ataxia, confusion, depressed. Past History Travel History Traveled to [place] past 21 day No Medical History Blood Transfusion Hx: No Neurological: multiple sclerosis Musculoskeletal: MS Psychiatric: bipolar disease Endocrine: DIABETES INSIPIDUS Other Medical Hx: MS, PE.DVT Surgical History Surgical History: none Family History Relations & Conditions If Any: No Known Family History. Psychosocial History Where Do You Live? Home Services at Home: None Smoking Status: Never Smoked ETOH Use: denies use Illicit Drug Use: denies illicit drug use Exam & Diagnostic Data Vital Signs and I&O Vital Signs Date Time Temp Pulse Resp B/P B/P Pulse O2 O2 Flow FiO2 Mean Ox Delivery Rate 09/22 0802 120/62 09/22 0655 97.8 82 18 116/80 97 Room Air 09/21 2154 98.4 80 20 118/72 98 Room Air 09/21 2037 97.6 82 16 138/82 97 Room Air 09/21 1736 74 20 144/88 100 Room Air 09/21 1309 97.0 85 20 95/68 94 Room Air Intake & Output 09/22 1600 09/22 0800 09/22 0000 09/21 1600 09/21 0800 09/21 0000 Intake Total 0 Output Total 300 Balance -300 0 Intake, Oral 0 Output, Urine 300 Patient 211 lb 204 lb Weight Weight Bed scale Estimated Measurement Method Physical Exam General Appearance: alert, awake, comfortable Head: atraumatic, normal appearance Eyes: Bilateral: PERRL, EOMI. Ears, Nose, Throat: normal ENT inspection Neck: supple, full range of motion, trachea mid line (no JVD) Respiratory: normal breath sounds, chest non-tender, no respiratory distress, lungs clear Cardiovascular: regular rate/rhythm, systolic murmur (2/6 LUSB, protosystolic) Peripheral Pulses: 2+ radial (R), 2+ radial (L), 4+ femoral (R), 2+ tibialis posterior (R), 2+ tibialis posterior (L) Gastrointestinal: normal bowel sounds, soft, non-tender, no organomegaly Extremities: normal capillary refill (erythema left external calf), no edema Neurologic/Psych: awake, oriented x 3, normal mood/affect Labs/Familia Results: Laboratory Tests 09/22 09/22 0720 0645 Chemistry Sodium (137 - 145 mmol/L) 143 Potassium (3.5 - 5.1 mmol/L) 2.9 *L Chloride (98 - 107 mmol/L) 102 Carbon Dioxide (22 - 30 mmol/L) 26 Anion Gap (5 - 16) 15 BUN (7 - 17 mg/dL) 27 H Creatinine (0.5 - 1.0 mg/dL) 1.6 H Estimated GFR (>60 ml/min) 35 L BUN/Creatinine Ratio (7 - 25 %) 16.9 Lactic Acid (0.7 - 2.1 mmol/L) < 0.5 L Magnesium (1.6 - 2.3 mg/dL) 2.1 Urines Urine Color (YEL,AMB,STR) YEL Urine Clarity (CLEAR) HAZY H Urine pH (5.0 - 8.0) 7.0 Ur Specific Foster (1.001 - 1.035) <= 1.005 Urine Protein (NEG,<30 MG/DL) NEG Urine Ketones (NEG) NEG Urine Nitrite (NEG) NEG Urine Bilirubin (NEG) NEG Urine Urobilinogen (0.1 - 1.0 EU/dl) 0.2 Ur Leukocyte Esterase (NEG) LARGE H Ur Microscopic SEDIMENT EXAMINED Urine RBC (0 - 5 /HPF) RARE Urine WBC (0 - 2 /HPF) 5-10 H Ur Epithelial Cells (NONE,FEW) FEW Urine Bacteria (NEG/NONE) FEW H Urine Hemoglobin (NEG) NEG Urine Glucose (N MG/DL) NEG 09/22 09/21 09/21 0500 2230 1819 Chemistry Sodium (137 - 145 mmol/L) 141 Potassium (3.5 - 5.1 mmol/L) 2.3 *L Chloride (98 - 107 mmol/L) 101 Carbon Dioxide (22 - 30 mmol/L) 25 Anion Gap (5 - 16) 15 BUN (7 - 17 mg/dL) 28 H Creatinine (0.5 - 1.0 mg/dL) 1.5 H Estimated GFR (>60 ml/min) 37 L BUN/Creatinine Ratio (7 - 25 %) 18.7 Lactic Acid (0.7 - 2.1 mmol/L) 0.9 3.2 H 3.1 H Troponin I (< 0.11 ng/ml) 0.02 Hematology CBC w Diff NO MAN DIFF REQ WBC (4.8 - 10.8 /CUMM) 8.2 RBC (4.20 - 5.40 /CUMM) 4.48 Hgb (12.0 - 16.0 G/DL) 14.0 Hct (37 - 47 %) 42.3 MCV (81.0 - 99.0 FL) 94.5 MCH (27.0 - 31.0 PG) 31.3 H MCHC (33.0 - 37.0 G/DL) 33.2 RDW (11.5 - 14.5 %) 14.7 H Plt Count (130 - 400 /CUMM) 400 MPV (7.4 - 10.4 FL) 7.8 Gran % (42.2 - 75.2 %) 69.4 Lymphocytes % (20.5 - 51.1 %) 17.2 L Monocytes % (1.7 - 9.3 %) 11.4 H Eosinophils % (0 - 5 %) 1.8 Basophils % (0.0 - 2.0 %) 0.2 Absolute Granulocytes (1.4 - 6.5 /CUMM) 5.7 Absolute Lymphocytes (1.2 - 3.4 /CUMM) 1.4 Absolute Monocytes (0.10 - 0.60 /CUMM) 0.9 H Absolute Eosinophils (0.0 - 0.7 /CUMM) 0.1 Absolute Basophils (0.0 - 0.2 /CUMM) 0 07/18 1550 Chemistry Sodium (137 - 145 mmol/L) 136 L Potassium (3.5 - 5.1 mmol/L) 2.7 *L Chloride (98 - 107 mmol/L) 85 L Carbon Dioxide (22 - 30 mmol/L) 29 Anion Gap (5 - 16) 22 H BUN (7 - 17 mg/dL) 34 H Creatinine (0.5 - 1.0 mg/dL) 2.1 H Estimated GFR (>60 ml/min) 25 L BUN/Creatinine Ratio (7 - 25 %) 16.2 Glucose (65 - 99 mg/dL) 93 Lactic Acid (0.7 - 2.1 mmol/L) 2.3 H Calcium (8.4 - 10.2 mg/dL) 9.3 Magnesium (1.6 - 2.3 mg/dL) 2.2 Total Bilirubin (0.2 - 1.3 mg/dL) 1.0 AST (14 - 36 U/L) 39 H ALT (9 - 52 U/L) 29 Alkaline Phosphatase (<127 U/L) 164 H Troponin I (< 0.11 ng/ml) 0.04 Total Protein (6.3 - 8.2 g/dL) 9.5 H Albumin (3.5 - 5.0 g/dL) 5.0 Globulin (1.9 - 4.2 gm/dL) 4.5 H Albumin/Globulin Ratio (1.1 - 2.2 %) 1.1 Hematology CBC w Diff NO MAN DIFF REQ WBC (4.8 - 10.8 /CUMM) 12.9 H RBC (4.20 - 5.40 /CUMM) 4.62 Hgb (12.0 - 16.0 G/DL) 14.5 Hct (37 - 47 %) 43.5 MCV (81.0 - 99.0 FL) 94.2 MCH (27.0 - 31.0 PG) 31.4 H MCHC (33.0 - 37.0 G/DL) 33.4 RDW (11.5 - 14.5 %) 14.3 Plt Count (130 - 400 /CUMM) 396 MPV (7.4 - 10.4 FL) 7.6 Gran % (42.2 - 75.2 %) 73.1 Lymphocytes % (20.5 - 51.1 %) 13.5 L Monocytes % (1.7 - 9.3 %) 12.0 H Eosinophils % (0 - 5 %) 1.0 Basophils % (0.0 - 2.0 %) 0.4 Absolute Granulocytes (1.4 - 6.5 /CUMM) 9.4 H Absolute Lymphocytes (1.2 - 3.4 /CUMM) 1.7 Absolute Monocytes (0.10 - 0.60 /CUMM) 1.6 H Absolute Eosinophils (0.0 - 0.7 /CUMM) 0.1 Absolute Basophils (0.0 - 0.2 /CUMM) 0 Serology Hepatitis A IgM Ab (NONREACTIVE) NONREACTIVE Hep Bs Antigen (NONREACTIVE) NONREACTIVE Hep B Core IgM Ab Conf (NONREACTIVE) NONREACTIVE Hepatitis C Antibody (NONREACTIVE) NONREACTIVE Assessment/Plan Assessment/Plan Severe hypokalemia in the setting of very poor food intake with concomitant use of hydrochlorothiazide. The repolarization abnormalities seen on EKG are likely a result of severe hypokalemia, and should normalize. I would recommend holding the patient's hydrochlorothiazide until K+ normalizes. Cardiac stratification is not necessary at this time, but would be warranted if the EKG changes do not normalize with K+ correction. Consult Acknowledgment - Thank you for your consult request.
[2017-09-22 14:16] VITALS: BP 104/62
[2017-09-22] MEDS ORDERED: AMITRIPTYLINE H25 M2 PO (16:07)
[2017-09-22] MEDS ORDERED: SUMATRIPTAN SU100 M1 PO (16:08)
[2017-09-22] MEDS ORDERED: DDAVP0.1 MG INH (21:47)
[2017-09-22 22:02] VITALS: BP 100/64
[2017-09-23 06:18] VITALS: BP 122/70
--- NOTE | 2017-09-23 07:23 | PN- Housestaff ---
Antonio Sullivan 09/23/17 0722: Subjective Follow-up For: Left lower extremity cellulitis Hypokalemia Acute kidney injury Lactic acidosis resolved Complaints: no complaints Tele-Events Since Last Visit: Normal sinus rhythm Subjective: Patient was seen and examined this morning. She is alert awake and oriented to time place and person. No acute events noticed overnight. Patient reports left lower extremity swelling, redness, less tender since admission. She is tolerating IV antibiotics. Patient potassium was low, received IV and oral potassium supplementation. She denies any muscle weakness, chest pain, palpitations, short of breath, fevers, chills. Vitals were within normal limits. Afebrile, heart rate 85, respiratory rate 20, blood pressure 144/88, saturating at 100 on room air. Review of Systems Constitutional: Reports: see HPI. Objective Last 24 Hrs of Vital Signs/I&O Vital Signs Date Time Temp Pulse Resp B/P B/P Pulse O2 O2 Flow FiO2 Mean Ox Delivery Rate 09/23 0618 97.6 84 20 122/70 97 Room Air 09/22 2202 98.1 82 20 100/64 99 Room Air 09/22 1416 97.1 81 18 104/62 96 Room Air 09/22 0802 120/62 Intake & Output 09/23 0800 09/23 0000 09/22 1600 Intake Total 1000 1000 1000 Output Total 400 2800 1500 Balance 600 -1800 -500 Intake, IV 600 Intake, Oral 1000 1000 400 Number 2 1 Bowel Movements Output, Urine 400 2800 1500 Patient 96.729 kg Weight Weight Bed scale Measurement Method Physical Exam General Appearance: Alert, Oriented X3, Cooperative, No Acute Distress Other Physical Findings: HEENT Atraumatic, PERRLA, EOMI, Mucous Membr. moist/pink Neck Supple, No JVD Cardiovascular Regular Rate, Normal S1, Normal S2 Lungs Clear to Auscultation, Normal Air Movement Abdomen Normal Bowel Sounds, Soft, No Tenderness Neurological Normal Speech, Strength at 5/5 X4 Ext, Normal Tone, Sensation Intact, Cranial Nerves 3-12 NL Extremities Distal left lower extermity erythema and tenderness with no drainage or wound Vascular Normal Pulses, Pulses Symmetrical Current Medications: Current Medications Sig/Sheree Start time Last Medication Dose Route Stop Time Status Admin Acetaminophen 650 MG Q6P PRN 09/210 AC PO Acetazolamide 125 MG BID 09/21 2330 AC 09/22 PO 2056 Amitriptyline HCl 50 MG QPM 09/22 2100 CAN PO Amitriptyline HCl 25 MG QPM 09/22 2100 AC 09/22 PO 2056 Calcitriol 0.5 MCG DAILY 09/22 0900 AC 09/22 PO 08 Cefazolin Sodium 1,000 MG IQ8 09/22 0000 AC 09/23 IV 0007 Cinacalcet 30 MG BID 09/21 2145 AC 09/22 PO 2056 Ferrous Sulfate 325 MG 09/23 09 AC PO Hydrochlorothiazide 12.5 MG DAILY 09/22 0900 DC 09/22 PO 0801 Lamotrigine 200 MG DAILY 09/22 09 AC 09/22 PO 08 Mirtazapine 15 MG QPM 09/22 2100 AC 09/22 PO 2056 Non-Formulary 0 SEE ADMIN CRITERIA 09/22 2199 UNVr Medication ANY Patient Medication 1 ED ONE ONE 09/22 1800 DC Teaching ED 09/22 1801 Potassium Chloride 60 MEQ ONCE ONE 09/22 0845 DC 09/22 PO 09/22 0846 0857 Potassium Chloride 40 MEQ Q10H 09/21 2359 DC 09/22 Sodium Chloride 1,000 ML IV 0122 Propranolol HCl 80 MG DAILY 09/22 0900 AC 09/22 PO 08 Rivaroxaban 20 MG DAILY 09/22 09 AC 09/22 PO 08 Sumatriptan Succinate 100 MG Q2 HRS NEEDED PRN 09/22 1845 AC 09/22 PO 2057 Last 24 Hrs of Lab/Familia Results Last 24 Hrs of Labs/Mics: Laboratory Tests 09/23/17 0654: Sodium Pending, Potassium Pending, Chloride Pending, Carbon Dioxide Pending, Anion Gap Pending, BUN Pending, Creatinine Pending, BUN/Creatinine Ratio Pending , Magnesium Pending, CBC w Diff Pending, WBC Pending, RBC Pending, Hgb Pending, Hct Pending, MCV Pending, MCH Pending, MCHC Pending, RDW Pending, Plt Count Pending, MPV Pending 09/22/17 1540: Anion Gap 12, Estimated GFR 37 L, BUN/Creatinine Ratio 18.7 Assessment/Plan Assessment: 47-year-old woman with past medical history of bipolar disorder, hypertension, multiple sclerosis, overactive bladder, migraines, history of diabetes insipidus , severe hypernatremia, primary hyperparathyroidism, and pulmonary embolism on Xarelto sent in by her neurologist for left lower extremity swelling and redness. Vital signs-temp 97.0, HR 74-85, RR 20, BP 95-1 4 4/66-88, O2 94-100% on room air Labs/imaging/studies -CBC: WBC 12.9, hemoglobin 14.5, hematocrit 43.5, platelet 396 -BMP: Sodium 136, potassium 2.7, chloride 85, CO2 29, BUN 34, creatinine 2.1 -LFT: AST 39, ALT 29, ALP 164 -Miscellaneous: Lactic acid 2.3/3.1, -LLE venous Doppler: * No evidence of deep venous thrombosis involving the lower extremity. -echocardiogram (01/14/14): * Mild concentric LVH * LVEF >65% * No regional wall motion abnormality -EKG 01/17/14: Sinus tachycardia -EKG 09/21/17 1715: ST segment depression in V4-V6, I, aVL, nonspecific interventricular conduction delay Left lower extremity cellulitis Patient presented with left lower extremity redness, swelling, tenderness for last 2-3 days. Vitals within normal limits. she was found to have leukocytosis 12.9 with lactic acidosis at the time of admission. Lower extremity ultrasound negative for DVT. She does not fulfill criteria for sepsis. * Admit to telemetry given hypokalemia * Continue cefazolin 1 g every 8 hours day3 * F/u Blood cultures * Elevate leg * F/u Fever, leukocytosis * Lactic acidosis resolved Hypokalemia Patient presented with potassium 2.7 at the time of admission. Of note patient reports that she has been doing low-calorie diet for last few weeks, she has been consuming less than 500 amanda per day. Hypokalemia most likely from low potassium intake. * Oral and IV potassium repletion * Recheck labs and replete accordingly * Mag was normal * Subtle EKG changes * Patient will get outpatient stress test for risk stratification * Follow-up echocardiogram * Continuous telemetry monitoring * Follow-up cardio recommendations Acute kidney injury Patient was found to have creatinine 2.1 at the time of admission. Looks like prerenal, improved with 2 bags of IV normal saline. Her creatinine is back to normal 1.5. * Monitor BUN, creatinine * And avoid nephrotoxic agents Lactic acidosis Lactic acid 3.2 at the time of admission, improved with normal saline bolus. Lactic acid back to normal. Bipolar disorder continue amitriptyline 25 od, lamotrigine 200 od Essential tremors continue propranolol 80 od Multiple sclerosis not on immunosuppressive agents Hypertension -patient takes hydrochlorothiazide 12.5 daily at home for high blood pressure. However will hold hydrochlorothiazide for now given hypokalemia. History of migraine takes sumatriptan as needed for headache 100 mg History of hyper parathyroidism-continue Sensipar 30 twice daily History of PE on Xarelto History of diabetes insipidus takes desmopressin 10 mcg nasal spray twice daily per nostril. will hold for now Insomnia continue mirtazapine 15 daily DVT prophylaxis on Xarelto Regular diet Full code Pain pathway ordered Problem List: 1. Cellulitis 2. Acute kidney injury Pain Ratin Pain Location: lle Pain Goal: Remain pain free Pain Plan: tylenol Tomorrow's Labs & Rationales: cbc bep mg CallieShayyeep 09/23/17 1308: Attending MD Review Statement Attending Statement Attending MD Statement: examined this patient, discuss w/resident/PA/GEOMORPHOLOGY TEACHER, agreed w/resident/PA/GEOMORPHOLOGY TEACHER, reviewed EMR data (avail), discussed with nursing, discussed with case mgmt Attending Assessment/Plan: plan dc today on po keflex and dc hctz . pt was made aware of med changes. cont rest of her home meds. see dc summary for more details.
--- NOTE | 2017-09-23 07:39 | Patient Discharge Instructions ---
Discharge Instructions General Discharge Information You were seen/treated for: Left lower extremity cellulitis Hypokalemia Acute kidney injury Lactic acidosis Special Instructions: Follow-up PCP in 1 week after discharge Follow-up with audio installer in 1-2 weeks after discharge Diet Continue normal diet: Yes Activity Full Activity/No Limits: Yes Acute Coronary Syndrome Inclusion Criteria At DC or during hospital stay patient has or had the following: ACS DIAGNOSIS No Discharge Core Measures Meds if any: Prescribed or Continued at Discharge Meds if any: NOT Prescribed or Continued at Discharge Congestive Heart Failure Inclusion Criteria At DC or during hospital stay patient has or had the following: CHF DIAGNOSIS No Discharge Core Measures Meds if any: Prescribed or Continued at Discharge Meds if any: NOT Prescribed or Continued at Discharge Cerebrovascular accident Inclusion Criteria At DC or during hospital stay patient has or had the following: CVA/TIA Diagnosis No Discharge Core Measures Meds if any: Prescribed or Continued at Discharge Meds if any: NOT Prescribed or Continued at Discharge Venous thromboembolism Inclusion Criteria VTE Diagnosis No VTE Type NONE VTE Confirmed by (Test) NONE Discharge Core Measures - Per Current guidelines, there needs to be overlap - treatment for the first 5 days of Warfarin therapy. - If discharged on Warfarin prior to 5 days of - overlap therapy, the patient will need to be - assessed for post discharge needs including - *Post discharge parental anticoagulation - *Warfarin and/or parental anticoagulation education - *Follow up date to check INR post discharge At least 5 days overlap therapy as Inpatient Yes Meds if any: Prescribed or Continued at Discharge Note: Overlap Therapy is Warfarin and Anticoagulant Meds if any: NOT Prescribed or Continued at Discharge
[2017-09-23 07:57] LABS: ABSOLUTE BASOPHIL COUNT 0.1 /CUMM (0.0-0.2); ABSOLUTE EOSINOPHIL COUNT 0.3 /CUMM (0.0-0.7); ABSOLUTE GRANULOCYTE CT 3.2 /CUMM (1.4-6.5); ABSOLUTE LYMPH COUNT 2.1 /CUMM (1.2-3.4); ABSOLUTE MONOCYTE COUNT 0.8 /CUMM (0.10-0.60); EOSINOPHIL % 4.6 % (0-5); GRANULOCYTE % 49.4 % (42.2-75.2); MEAN CORPUSCULAR HGB 31.3 PG (27.0-31.0); MEAN CORPUSCULAR HGB CONC 33.1 G/DL (33.0-37.0); MEAN CORPUSCULAR VOLUME 94.5 FL (81.0-99.0); MEAN PLATELET VOLUME 7.8 FL (7.4-10.4); PLATELET COUNT 415 /CUMM (130-400); RBC DISTRIBUTION WIDTH 15.1 % (11.5-14.5); RED BLOOD CELL CT 4.45 /CUMM (4.20-5.40); WHITE BLOOD CELL COUNT 6.4 /CUMM (4.8-10.8)
[2017-09-23 08:22] VITALS: BP 122/70
[2017-09-23] MEDS ORDERED: KEFLEX500 M1 PO (09:45)
--- NOTE | 2017-09-23 12:20 | Discharge Summary ---
Visit Information Visit Dates Admission Date: 09/21/17 Discharge Date: 09/23/2017 Hospital Course Course Attending Physician: Callie ADHIKARI,Félix Anderson Primary Care Physician: Jessie ADHIKARI,[place] [facility] Course: 47-year-old woman with past medical history of bipolar disorder, hypertension, multiple sclerosis, overactive bladder, migraines, history of diabetes insipidus , severe hypernatremia, primary hyperparathyroidism, and pulmonary embolism on Xarelto sent in by her neurologist for left lower extremity swelling and redness. Vital signs-temp 97.0, HR 74-85, RR 20, BP 95-1 4 4/66-88, O2 94-100% on room air Labs/imaging/studies -CBC: WBC 12.9, hemoglobin 14.5, hematocrit 43.5, platelet 396 -BMP: Sodium 136, potassium 2.7, chloride 85, CO2 29, BUN 34, creatinine 2.1 -LFT: AST 39, ALT 29, ALP 164 -Miscellaneous: Lactic acid 2.3/3.1, -LLE venous Doppler: * No evidence of deep venous thrombosis involving the lower extremity. -echocardiogram (01/14/14): * Mild concentric LVH * LVEF >65% * No regional wall motion abnormality -EKG 01/17/14: Sinus tachycardia -EKG 09/21/17 1715: ST segment depression in V4-V6, I, aVL, nonspecific interventricular conduction delay Left lower extremity cellulitis Patient presented with left lower extremity redness, swelling, tenderness for last 2-3 days. Vitals within normal limits. she was found to have leukocytosis 12.9 with lactic acidosis at the time of admission. Lower extremity ultrasound negative for DVT. She does not fulfill criteria for sepsis. She was started on IV cefazolin 1 g every 8 hours. Blood cultures were negative. She remained afebrile with normal WBC count. Lactic acidosis resolved. She was discharged on Keflex 500 mg every 6 hours for 3 more days to complete 5 day course for cellulitis. She was advised to follow-up with PCP in a week after discharge. She was advised to elevate her left leg for swelling. Hypokalemia Patient presented with potassium 2.7 at the time of admission. Of note patient reports that she has been doing low-calorie diet for last few weeks, she has been consuming less than 500 amanda per day. Hypokalemia most likely from low potassium intake. She was given IV and oral potassium. Her potassium came back normal 3.6 at the time of discharge. Magnesium was normal. She was found to have subtle EKG changes possibly from repolarization due to hypokalemia. Telehealth Case Manager was consulted, recommended outpatient follow-up and risk stratification with stress test. Acute kidney injury Patient was found to have creatinine 2.1 at the time of admission. Looks like prerenal, improved with 2 bags of IV normal saline. Her creatinine is back to normal 1.5. Lactic acidosis Lactic acid 3.2 at the time of admission, improved with normal saline bolus. Lactic acid back to normal. Bipolar disorder continue amitriptyline 25 od, lamotrigine 200 od Essential tremors continue propranolol 80 od Multiple sclerosis not on immunosuppressive agents Hypertension -patient takes hydrochlorothiazide 12.5 daily at home for high blood pressure. However will hold hydrochlorothiazide for now given hypokalemia. History of migraine takes sumatriptan as needed for headache 100 mg History of hyper parathyroidism-continue Sensipar 30 twice daily History of PE on Xarelto History of diabetes insipidus takes desmopressin 10 mcg nasal spray twice daily per nostril. Insomnia continue mirtazapine 15 daily DVT prophylaxis on Xarelto Regular diet Full code Pain pathway ordered Allergies: Coded Allergies: Penicillins (RASH 05/26/17) lithium (TREMORS 05/26/17) Pertinent Lab Results: FINDINGS: Respiratory variation, normal compression and augmented flow are noted throughout the lower extremity. The visualized common femoral vein, superficial femoral vein, profunda femoral vein, popliteal vein and midcalf peroneal and posterior tibial venous segments show no evidence of deep venous thrombosis. There is no Willams's cyst. IMPRESSION: No evidence of deep venous thrombosis involving the lower extremity. Disposition Summary Disposition Principal Diagnosis: Left lower extremity cellulitis Hypokalemia Acute kidney injury Lactic acidosis Additional Diagnosis: as above Discharge Disposition: home health services Discharge Instructions General Discharge Information Code Status: Full Code Patient's Diet: As tolerated Patient's Activity: As tolerated Follow-Up Instructions/Appts: Follow-up PCP in 1 week after discharge Follow-up with operational review sergeant in 2 weeks after discharge Medications at Discharge Discharge Medications: Stop taking the following medications: Amitriptyline HCl (Amitriptyline HCl) 50 MG TABLET ORAL Every night Qty = 30 Hydrochlorothiazide (Hydrochlorothiazide) 12.5 MG TABLET ORAL DAILY Continue taking these medications: Cinacalcet HCl (Sensipar) 30 MG TABLET 1 Tablet ORAL TWICE DAILY Qty = 30 Comments: Last Taken:09/23/17 Time:0900 Propranolol HCl (Propranolol HCl ER) 80 MG CAP.SA.24H 1 Capsule ORAL DAILY Comments: Last Taken:09/23/17 Time:0900 Lamotrigine (Lamotrigine) 200 MG TABLET 1 Tablet ORAL DAILY Qty = 30 Comments: Last Taken:09/23/17 Time:0900 Calcitriol (Calcitriol) 0.5 MCG CAPSULE 1 Capsule ORAL DAILY Qty = 30 Comments: Last Taken:09/23/17 Time:0900 Ferrous Gluconate (IRON) 256 MG (28 MG IRON) TABLET 1 Tablet ORAL MoWeFr Comments: Last Taken:09/23/17 Time:0900 Rivaroxaban (Xarelto) 20 MG TABLET 1 Tablet ORAL DAILY Instructions: with food Comments: Last Taken:09/23/17 Time:0900 Acetazolamide (Acetazolamide) 125 MG TABLET 1 Tablet ORAL TWICE DAILY Comments: Last Taken:09/23/17 Time:0900 Mirtazapine (Mirtazapine) 15 MG TABLET 1 Tablet ORAL Every night Comments: Last Taken:09/22/17 Time:9PM Amitriptyline HCl (Amitriptyline HCl) 25 MG TABLET 1 Tablet ORAL Every night Qty = 30 Comments: Last Taken:09/22/17 Time:9PM Sumatriptan Succinate (Sumatriptan Succinate) 100 MG TABLET 1 Tablet ORAL As Directed Instructions: may repeat in 2 hours; do not exceed 200 mg in 24 hours Comments: Last Taken:09/22/17 Time:9PM Desmopressin Acetate (Ddavp) 0.1 MG TABLET 1 Tablet Inhale through mouth TWICE DAILY Comments: Last Taken:09/23/17 Time:0900 Start taking the following new medications: Cephalexin (Keflex) 500 MG CAPSULE 1 Capsule ORAL EVERY SIX HOURS Qty = 12 No Refills Comments: Last Taken:09/23/17 Time:0900 GIVEN IV Copies To: Jessie ADHIKARI,Autumn
--- NOTE | 2017-09-23 13:10 | ECHOCARDIOGRAM REPORT ---
LILIANA COREA Age: 47 : 1970 Gender: F Exam Date: 09/22/2017 14:21 Exam Location: 1 [address] Ht (in): 66 Wt (lb): 204 BSA: 2.11 BP: 116 / 80 Ordering Physician: Wally Newman MD Referring Physician: Tommy John MD Technologist: Ashely Mitchell [facility] Room Number: [id number] Indications: Structural heart disease Rhythm: Technical Quality: FINDINGS Left Ventricle Normal left ventricular size and systolic function with no obvious regional wall motion abnormalities. Mild concentric LVH. Normal left ventricular diastolic filling pattern for age. The ejection fraction is visually estimated at 65%. Right Ventricle The right ventricle is normal in size and function. Right Atrium The right atrium is normal in size. Left Atrium The left atrium is normal in size. The interatrial septum is intact. Mitral Valve The mitral valve is normal in structure and function. There is trace central mitral regurgitation. Aortic Valve Structurally normal aortic valve without significant sclerosis or stenosis. There is no aortic regurgitation. Tricuspid Valve The tricuspid valve is normal in structure and function. There is mild tricuspid regurgitation. Pulmonary artery systolic pressure is normal. Pulmonic Valve Structurally normal pulmonic valve. There is trace pulmonic regurgitation. Pericardium Normal pericardium without effusion. No pleural effusion. Great Vessels Normal aortic root dimension. The aortic arch and great vessels are well seen and are normal. CONCLUSIONS Normal left ventricular size and systolic function with no obvious regional wall motion abnormalities. Mild concentric LVH. Normal left ventricular diastolic filling pattern for age. The ejection fraction is visually estimated at 65%. The right ventricle is normal in size and function. There is trace central mitral regurgitation. Structurally normal aortic valve without significant sclerosis or stenosis. There is mild tricuspid regurgitation. Pulmonary artery systolic pressure is normal. There is trace pulmonic regurgitation. Normal pericardium without effusion. Normal aortic root dimension. The aortic arch and great vessels are well seen and are normal. Tommy John M.D. (Electronically Signed) Final Date: 23 September 2017 13:05 MEASUREMENTS (Male / Female) Normal Values 2D ECHO LV Diastolic Diameter PLAX 3.7 cm 4.2 - 5.9 / 3.9 - 5.3 cm LV Systolic Diameter PLAX 2.1 cm 2.1 - 4.0 cm LV Fractional Shortening PLAX 43.2 % 25 - 46 % LV Ejection Fraction 2D Teich 75.2 % IVS Diastolic Thickness 1.3 cm LVPW Diastolic Thickness 1.2 cm LV Relative Wall Thickness 0.7 RV Internal Dim ED PLAX 3.2 cm 1.9 - 3.8 cm LVOT Diameter 2.3 cm Aortic Root Diameter 3.2 cm LA Systolic Diameter LX 3.3 cm 3.0 - 4.0 / 2.7 - 3.8 cm LA Volume 41.0 cm 18 - 58 / 22 - 52 cm Ascending Aorta Diameter 3.0 cm DOPPLER AV Peak Velocity 114.0 cm/s AV Peak Gradient 5.2 mmHg AV Mean Velocity 83.8 cm/s AV Mean Gradient 3.0 mmHg AV Velocity Time Integral 26.4 cm LVOT Peak Velocity 118.0 cm/s LVOT Peak Gradient 5.6 mmHg LVOT Mean Velocity 81.5 cm/s LVOT Mean Gradient 3.0 mmHg LVOT Velocity Time Integral 25.5 cm LVOT Stroke Volume 105.9 cm AV Area Cont Eq vti 4.0 cm AV Area Cont Eq pk 4.3 cm MV Peak Velocity 86.9 cm/s MV Peak Gradient 3.0 mmHg MV Mean Velocity 51.0 cm/s MV Mean Gradient 1.0 mmHg Mitral E Point Velocity 80.5 cm/s Mitral A Point Velocity 52.3 cm/s Mitral E to A Ratio 1.5 MV PHT Velocity 89.9 cm/s MV Deceleration Bartholomew 587.0 cm/s MV Pressure Half Time 45.9 ms MV Area PHT 4.8 cm MV Deceleration Time 195.0 ms TR Peak Velocity 223.0 cm/s TR Peak Gradient 19.9 mmHg Right Atrial Pressure 5.0 mmHg Pulmonary Artery Systolic Pressure 24.9 mmHg Right Ventricular Systolic Pressure 24.9 mmHg PV Peak Velocity 85.5 cm/s PV Peak Gradient 2.9 mmHg PV Mean Velocity 63.2 cm/s PV Mean Gradient 2.0 mmHg PV Velocity Time Integral 20.7 cm LV E' Lateral Velocity 12.8 cm/s Mitral E to LV E' Lateral Ratio 6.3 LV E' Septal Velocity 9.6 cm/s Mitral E to LV E' Septal Ratio 8.4
== END 2017-09-23 14:10 | disposition home health service (06) | DRG 603 ==
LOC: ERH 12:54 → ERHI 19:58 → 1NO 19:58 → ENRESERV 20:10 → ENTRNSPT 21:05 → EDTRNSPTSTS 21:11 → EDTRNSPT 21:17 → 1NO 21:19 → CMPTRNSPT 21:32 → 1NO 09-22 07:21 → ENPENDDIS 09-23 09:59 → ENTRNSPT 09-23 13:10 → EDTRNSPTSTS 09-23 13:37 → 1NO 09-23 14:10 → CMPTRNSPT 09-23 14:16
PROVIDERS: Hospitalist; Internal Medicine Interventional Cardiology; Physician Assistant
DX: L03.116 Cellulitis of left lower limb (principal); N17.9 Acute kidney failure, unspecified; E87.2 Acidosis; E87.6 Hypokalemia; G35 Multiple sclerosis; R94.31 Abnormal electrocardiogram [ECG] [EKG]; I10 Essential (primary) hypertension; N32.81 Overactive bladder; F31.9 Bipolar disorder, unspecified; Z86.711 Personal history of pulmonary embolism; Z79.01 Long term (current) use of anticoagulants; E21.0 Primary hyperparathyroidism; E66.9 Obesity, unspecified; Z68.33 Body mass index [BMI] 33.0-33.9, adult; G25.0 Essential tremor; Z88.0 Allergy status to penicillin; Z88.8 Allergy status to other drugs, medicaments and biological substances; G43.909 Migraine, unspecified, not intractable, without status migrainosus; G47.00 Insomnia, unspecified
CPT/HCPCS: 1NSP; 36415; 36592; 81001; 82436; 87040; 93005; 93010; 93306; J0690; J0744; J3370; J3490; J7040; J7060

== ENCOUNTER → 2017-09-29 | Day surgery (SDC) | payer OTHER ==
[~2017-09-29] VITALS: Ht 167.6 cm; Wt 97.5 kg
[~2017-09-29] MED LIST changes: +ACETAZOLAMIDE125 M1 PO; +AMITRIPTYLINE H25 M2 PO; +DDAVP0.1 MG INH; +HYDROCHLOROTH12.5 M2 PO; +MIRTAZAPINE15 M2 PO
--- NOTE | 2017-09-29 15:34 | Operative Report ---
Operative/Inv Procedure Report Surgery Date: 09/29/17 Name of Procedure: botox 200unit bladder injection: cystoscopy Pre-Operative Diagnosis: overactive bladder Post-Operative Diagnosis: same Estimated Blood Loss: scant Surgeon/Sales Architect: Ronny Ballard MD Anesthesia: moderate sedation Complications: none Operative Indication: failed anti-cholinergics Operative/Procedure Note Note: The patient was taken to the operating room and placed on the OR table in supine position. Timeout was performed in order to confirm the correct patient, procedure, and other pertienent operative information. After adequate anesthesia and antibiotics, the patient was then placed lithotomy stirrups, draped and prepped in the usual surgical fashion. The 22 [place] cystoscope with the 30 degree angle lens was inserted into the bladder without difficulty. Uretral mucosa was noted to be coapting well. The bladder appears normal without tumor/stone. Bilateral clear efflux was also noted. The cystoscope was removed after draining the bladder. Subsequently, the Botox Injection Resectoscope with 30 angle lens was inserted without difficulty. Under direct visualization, the 18-gauge cystoscopic needle was extended. Using a spiral injection patern, avoiding the trigone and area around the ureteral orifices, a total of 200 units of Botox, in small 10unit aliquots was injected into the bladder muscle/detrusor (including the dome, posterior, right and left segura of the bladder) forming a submucosal blister with each injection of botox. The bladder was then drained and the Botox cystoscope was removed without difficulty. The patient tolerated the procedure well, and was then taken to recovery room in satisfactory condition. She was discharged home with pain medication and antibiotics, and to follow up in 2 weeks' time. Discharge Disposition: PACU CC: Ronny Ballard MD
== END ==
LOC: STS 02:59
DX: N32.81 Overactive bladder (principal); I10 Essential (primary) hypertension; G35 Multiple sclerosis; Z79.01 Long term (current) use of anticoagulants; K21.9 Gastro-esophageal reflux disease without esophagitis; M19.90 Unspecified osteoarthritis, unspecified site
CPT/HCPCS: 36415; 81025; J0585; J2250